=== PATIENT | male | born 1930 | race Asian ===

== ENCOUNTER 2022-02-26 23:25 | Inpatient (IN) | payer OTHER ==
[~2022-02-26] VITALS: Ht 188 cm; Wt 69.5 kg
[2022-02-26 23:30] VITALS: BP_SYST 86
[2022-02-26] MEDS ORDERED: VANCOMYCIN HCL 1,000 MG in NS 250 ML IV ONE (23:45)
[2022-02-26] MEDS ORDERED: NACL 0.9% 2,000 ML IV ONE (23:45)
[2022-02-26] MEDS ORDERED: MEROPENEM 1 GM IVPB PREMIX 50 ML IV ONE (23:45)
[2022-02-26 23:58] LABS: BILIRUBIN,URINE 1+ (NEGATIVE); BLOOD, URINE 3+ (NEGATIVE); CLARITY/URINE CLEAR (CLEAR); COLOR,URINE YELLOW (YELLOW); GLUCOSE,URINE NEGATIVE (NEGATIVE); KETONES,URINE TRACE (NEGATIVE); LEUKOCYTE ESTERASE ,URINE 1+ (NEGATIVE); NITRITE, URINE NEGATIVE (NEGATIVE); PROTEIN URINE 2+ (NEGATIVE)
[2022-02-27] VITALS (16 sets, daily range): BP systolic 86–133
[2022-02-27 00:26] LABS: BASOPHILS # (AUTO) 0.1 K/uL (0.0-0.2); BASOPHILS % (AUTO) 0.2 % (0.0-2.0); HEMATOCRIT 31.6 % (36-54); HEMOGLOBIN 10.3 g/dL (14.0-18.0); LYMPHOCYTES % (AUTO) 3.8 % (20.5-51.5); MEAN CORPUSCULAR HEMOGLOBIN 28 pg (27-31); MEAN CORPUSCULAR HGB CONC 33 % (32-36); MEAN CORPUSCULAR VOLUME 87 fL (79.0-98.0); MONOCYTES # (AUTO) 0.6 K/uL (0.0-1.0); MONOCYTES % (AUTO) 2.4 % (1.7-9.3); NEUTROPHILS # (AUTO) 23.9 K/uL (1.8-7.7); NEUTROPHILS % (AUTO) 93.6 % (40.0-70.0); PLATELET COUNT (AUTO) 438 K/uL (130-430); RED BLOOD CELL COUNT(AUTO) 3.63 MIL/uL (4.2-6.2); RED CELL DISTRIBUTION WIDTH 19.3 % (9.0-15.0); WHITE BLOOD COUNT (AUTO) 25.5 K/uL (4.8-10.8)
[2022-02-27 00:27] LABS: BACTERIA,URINE MANY /HPF (None Seen); RBC,URINE 20-50 /HPF (0-3)
[2022-02-27 00:34] LABS: ANION GAP 12 (5-15); CALCIUM 8.2 mg/dL (8.4-11.0); CHLORIDE 100 mmol/L (98-107); CREATININE 1.11 mg/dL (0.55-1.30); GLUCOSE 170 mg/dL (70-99); POTASSIUM 4.7 mmol/L (3.5-5.1); SODIUM SERUM 137 mmol/L (136-145); UREA NITROGEN, BLOOD 42 mg/dL (8-21)
[2022-02-27 00:40] LABS: ALANINE AMINOTRANSFERASE 11 U/L (12-78); ALBUMIN 1.9 g/dL (3.4-4.8); ASPARTATE AMINOTRANSFERASE 28 U/L (10-37); TOTAL BILIRUBIN 0.6 mg/dL (0.0-1.0)
[2022-02-27] MEDS ORDERED: MEROPENEM 500 MG VIAL IV ONE (00:44)
[2022-02-27] MEDS ORDERED: VANCOMYCIN HCL 1000 MG/VIAL IV ONE (01:46)
[2022-02-27] MEDS ORDERED: KETOROLAC TROMETHAMINE 30 MG VIAL ONE (02:35)
[2022-02-27] MEDS ORDERED: INSU100V11 SQ (02:39)
[2022-02-27] MEDS ORDERED: MEMA5TAB PO (02:39)
[2022-02-27] MEDS ORDERED: GLIP10TA21 PO (02:39)
[2022-02-27] MEDS ORDERED: OMEG-158 PO (02:39)
[2022-02-27] MEDS ORDERED: DONE10TA44 PO (02:39)
[2022-02-27] MEDS ORDERED: ACET325T53 PO (02:39)
[2022-02-27] MEDS ORDERED: CRAN450T9 PO (02:39)
[2022-02-27] MEDS ORDERED: METF-518 PO ×2 (02:39→02:57)
[2022-02-27] MEDS ORDERED: HYDR-4038 PO (02:39)
[2022-02-27] MEDS ORDERED: SIMV40TA2 PO (02:39)
[2022-02-27] MEDS ORDERED: ASCO500T20 PO (02:39)
[2022-02-27] MEDS ORDERED: MULT-1117 PO (02:39)
[2022-02-27] MEDS ORDERED: DOCU-144 PO (02:39)
[2022-02-27] MEDS ORDERED: KETOROLAC TROMETHAMINE 30 MG VIAL IVP ONE (02:45)
[2022-02-27] MEDS ORDERED: IPRA4AER INH (02:57)
[2022-02-27] MEDS ORDERED: ACET325T GT (02:57)
[2022-02-27] MEDS ORDERED: ASPI-1393 GT (02:57)
[2022-02-27] MEDS ORDERED: [UNRECOGNIZED DRUG - CODE] GT (02:57)
[2022-02-27] MEDS ORDERED: ARGI1POW13 GT (02:57)
[2022-02-27] MEDS ORDERED: FURO-150 GT (02:57)
[2022-02-27] MEDS ORDERED: LACT10SO6 GT (02:57)
[2022-02-27] MEDS ORDERED: ROBINUL GT (02:57)
[2022-02-27] MEDS ORDERED: COR3.125 GT (02:57)
[2022-02-27] MEDS ORDERED: FAMO20TA8 GT (02:57)
[2022-02-27] MEDS ORDERED: GLUC1VIA14 IM (02:57)
[2022-02-27] MEDS ORDERED: HYDR-3917 GT (02:57)
[2022-02-27] MEDS ORDERED: LISI10TA29 GT (02:57)
[2022-02-27] MEDS ORDERED: AMIN30LI2 GT (02:57)
[2022-02-27] MEDS ORDERED: MULT-1117 GT (02:57)
[2022-02-27] MEDS ORDERED: NOREPINEPHRINE BITARTRATE 4 MG in NS 246 ML IV PRN (05:45)
[2022-02-27 06:22] LABS: BASOPHILS % (AUTO) 0.1 % (0.0-2.0); HEMATOCRIT 27.1 % (36-54); HEMOGLOBIN 9.2 g/dL (14.0-18.0); LYMPHOCYTES # (AUTO) 1.6 K/uL (1.0-5.5); LYMPHOCYTES % (AUTO) 6.5 % (20.5-51.5); MEAN CORPUSCULAR HEMOGLOBIN 29 pg (27-31); MEAN CORPUSCULAR HGB CONC 34 % (32-36); MEAN CORPUSCULAR VOLUME 86 fL (79.0-98.0); MONOCYTES # (AUTO) 0.8 K/uL (0.0-1.0); MONOCYTES % (AUTO) 3.3 % (1.7-9.3); NEUTROPHILS # (AUTO) 22.4 K/uL (1.8-7.7); NEUTROPHILS % (AUTO) 90.1 % (40.0-70.0); PLATELET COUNT (AUTO) 346 K/uL (130-430); RED BLOOD CELL COUNT(AUTO) 3.17 MIL/uL (4.2-6.2); RED CELL DISTRIBUTION WIDTH 18.9 % (9.0-15.0); WHITE BLOOD COUNT (AUTO) 24.9 K/uL (4.8-10.8)
[2022-02-27 06:38] LABS: ANION GAP 8 (5-15); CALCIUM 7.2 mg/dL (8.4-11.0); CHLORIDE 105 mmol/L (98-107); CREATININE 0.86 mg/dL (0.55-1.30); GLUCOSE 154 mg/dL (70-99); POTASSIUM 4.6 mmol/L (3.5-5.1); SODIUM SERUM 139 mmol/L (136-145); UREA NITROGEN, BLOOD 46 mg/dL (8-21)
[2022-02-27 06:44] LABS: ALANINE AMINOTRANSFERASE 36 U/L (12-78); ALBUMIN 1.7 g/dL (3.4-4.8); ASPARTATE AMINOTRANSFERASE 44 U/L (10-37); TOTAL BILIRUBIN 0.4 mg/dL (0.0-1.0)
[2022-02-27] MEDS ORDERED: HYDROcodone/ACETAMIN 5-325 MG TAB (NORCO/ VICODIN) GT PRN (06:45)
[2022-02-27] MEDS ORDERED: MORPHINE 2 MG/ML INJ. SYRINGE IVP PRN ×2 (06:45→12:15)
[2022-02-27] MEDS ORDERED: ACETAMINOPHEN 325 MG TABLET PO PRN ×3 (06:45→12:15)
[2022-02-27] MEDS ORDERED: ONDANSETRON HCL 4 MG/2 ML VIAL IVP PRN ×2 (06:45→12:15)
[2022-02-27] MEDS ORDERED: NACL 0.9% 1,000 ML IV ONE (07:00)
[2022-02-27] MEDS ORDERED: HYDROCORTISONE SOD SUCC 100 MG/2 ML VIAL IVP ONE (07:00)
[2022-02-27] MEDS: NS 500 ML IV SCH ×3 (07:00→20:03)
[2022-02-27] MEDS: IPRATROPIUM BROM 0.5 MG/2.5 ML VIAL.NEB (ATROVENT) INH SCH ×4 (08:00→20:07)
[2022-02-27] MEDS: FUROSEMIDE 20 MG TABLET GT SCH (09:00)
[2022-02-27] MEDS ORDERED: ASPIRIN 81 MG TABLET(ECOTRIN) GT SCH (09:00)
[2022-02-27] MEDS: LISINOPRIL 10 MG TABLET (PRINIVIL) GT SCH (09:00)
[2022-02-27] MEDS: CARVEDILOL 3.125 MG TABLET (COREG) GT SCH ×2 (09:00→21:00)
[2022-02-27] MEDS: FAMOTIDINE 20 MG TABLET GT SCH ×2 (10:09→20:39)
[2022-02-27] MEDS: GLYCOPYRROLATE 1 MG TABLET GT SCH ×2 (10:10→20:39)
[2022-02-27] MEDS: MULTIVITAMINS TAB 1 TABLET GT SCH (10:10)
[2022-02-27] MEDS: ASPIRIN 81 MG TAB.CHEW GT SCH (10:10)
[2022-02-27] MEDS ORDERED: NOREPINEPHRINE 4 MG/4 ML VIAL IV ONE (10:48)
[2022-02-27 11:42] LABS: INR 1.3 (0.80-1.20); PROTHROMBIN TIME 12.9 SECS (9.5-12.5)
[2022-02-27] MEDS ORDERED: HYDROcodone/ACETAMIN 5-325 MG TAB (NORCO/ VICODIN) PO PRN (12:15)
[2022-02-27] MEDS: PIPERACILLIN/TAZO 3.375/DEX-IS 50 ML IV SCH ×2 (12:46→17:09)
[2022-02-27] MEDS ORDERED: VANCOMYCIN HCL 750 MG in NS 250 ML IV SCH (14:00)
[2022-02-27] MEDS: LACTOBACILLUS RHAMNOSUS GG 1 CAP CAPSULE PO SCH (20:38)
[2022-02-28] VITALS (23 sets, daily range): BP systolic 92–124
[2022-02-28] MEDS: PIPERACILLIN/TAZO 3.375/DEX-IS 50 ML IV SCH ×4 (00:21→17:18)
[2022-02-28] MEDS: IPRATROPIUM BROM 0.5 MG/2.5 ML VIAL.NEB (ATROVENT) INH SCH ×6 (02:40→20:10)
[2022-02-28] MEDS: NS 500 ML IV SCH ×3 (03:29→17:18)
[2022-02-28 06:58] LABS: HEMATOCRIT 27.4 % (36-54); HEMOGLOBIN 9.1 g/dL (14.0-18.0); MEAN CORPUSCULAR HEMOGLOBIN 29 pg (27-31); MEAN CORPUSCULAR HGB CONC 33 % (32-36); MEAN CORPUSCULAR VOLUME 86 fL (79.0-98.0); PLATELET COUNT (AUTO) 296 K/uL (130-430); RED BLOOD CELL COUNT(AUTO) 3.17 MIL/uL (4.2-6.2); RED CELL DISTRIBUTION WIDTH 19.2 % (9.0-15.0); WHITE BLOOD COUNT (AUTO) 22.3 K/uL (4.8-10.8)
[2022-02-28 07:12] LABS: ANION GAP 5 (5-15); CALCIUM 7.4 mg/dL (8.4-11.0); CHLORIDE 109 mmol/L (98-107); CREATININE 0.62 mg/dL (0.55-1.30); GLUCOSE 108 mg/dL (70-99); PHOSPHORUS 2.7 mg/dL (2.7-4.5); POTASSIUM 3.4 mmol/L (3.5-5.1); SODIUM SERUM 142 mmol/L (136-145); UREA NITROGEN, BLOOD 39 mg/dL (8-21)
[2022-02-28] MEDS: LISINOPRIL 10 MG TABLET (PRINIVIL) GT SCH (09:00)
[2022-02-28] MEDS: CARVEDILOL 3.125 MG TABLET (COREG) GT SCH ×2 (09:00→21:58)
[2022-02-28] MEDS ORDERED: POTASSIUM CHLORIDE 20 MEQ/PKT PACKET GT ONE (09:15)
[2022-02-28] MEDS: LACTOBACILLUS RHAMNOSUS GG 1 CAP CAPSULE PO SCH ×2 (09:25→21:28)
[2022-02-28] MEDS: MULTIVITAMINS TAB 1 TABLET GT SCH (09:25)
[2022-02-28] MEDS: ASPIRIN 81 MG TAB.CHEW GT SCH (09:25)
[2022-02-28] MEDS: GLYCOPYRROLATE 1 MG TABLET GT SCH ×2 (09:26→21:28)
[2022-02-28] MEDS: FAMOTIDINE 20 MG TABLET GT SCH ×2 (09:27→21:28)
[2022-02-28] MEDS: FUROSEMIDE 20 MG TABLET GT SCH (09:27)
[2022-02-28 15:03] LABS: BAND % (MANUAL) 17 % (0-6); BASOPHILS % (MANUAL) 0 % (0-2); EOSINOPHILS % (MANUAL) 0 % (0-7); LYMPHOCYTES % (MANUAL) 6 % (20-46); MONOCYTES % (MANUAL) 1 % (0-11)
[2022-02-28] MEDS: ALBUTEROL SULFATE 0.083% 2.5 MG/3 ML VIAL.NEB INH PRN (17:38)
[2022-03-01] VITALS (23 sets, daily range): BP systolic 98–129
[2022-03-01] MEDS: PIPERACILLIN/TAZO 3.375/DEX-IS 50 ML IV SCH ×5 (00:05→23:47)
[2022-03-01] MEDS: IPRATROPIUM BROM 0.5 MG/2.5 ML VIAL.NEB (ATROVENT) INH SCH ×5 (03:13→20:11)
[2022-03-01] MEDS: NS 500 ML IV SCH ×4 (07:48→20:57)
[2022-03-01] MEDS: ALBUTEROL SULFATE 0.083% 2.5 MG/3 ML VIAL.NEB INH PRN ×2 (09:37→20:12)
[2022-03-01] MEDS: GLYCOPYRROLATE 1 MG TABLET GT SCH ×2 (10:07→20:03)
[2022-03-01] MEDS: MULTIVITAMINS TAB 1 TABLET GT SCH (10:07)
[2022-03-01] MEDS: ASPIRIN 81 MG TAB.CHEW GT SCH (10:07)
[2022-03-01] MEDS: FAMOTIDINE 20 MG TABLET GT SCH ×2 (10:07→20:04)
[2022-03-01] MEDS: LACTOBACILLUS RHAMNOSUS GG 1 CAP CAPSULE PO SCH ×2 (10:07→20:03)
[2022-03-01] MEDS: LISINOPRIL 10 MG TABLET (PRINIVIL) GT SCH (10:09)
[2022-03-01] MEDS: CARVEDILOL 3.125 MG TABLET (COREG) GT SCH ×2 (10:09→20:04)
[2022-03-01] MEDS: FUROSEMIDE 20 MG TABLET GT SCH (10:10)
[2022-03-01] MEDS: BALSAM PERU/CASTOR OIL 56.7 GM OINT...G. TP SCH (10:11)
[2022-03-01] MEDS: HEPARIN SODIUM,PORCINE 5,000 UNITS/ML VIAL SUBCUT SCH (20:06)
[2022-03-02] MEDS: IPRATROPIUM BROM 0.5 MG/2.5 ML VIAL.NEB (ATROVENT) INH SCH ×7 (00:31→23:16)
[2022-03-02 00:45] VITALS: BP_SYST 121
[2022-03-02] MEDS: NS 500 ML IV SCH ×3 (06:03→22:48)
[2022-03-02] MEDS: PIPERACILLIN/TAZO 3.375/DEX-IS 50 ML IV SCH ×3 (06:03→18:17)
[2022-03-02 06:38] LABS: BASOPHILS % (AUTO) 0.1 % (0.0-2.0); EOSINOPHILS # (AUTO) 0.1 K/uL (0.0-0.4); EOSINOPHILS % (AUTO) 0.4 % (0.0-4.0); HEMATOCRIT 24.5 % (36-54); HEMOGLOBIN 8.2 g/dL (14.0-18.0); LYMPHOCYTES # (AUTO) 1.1 K/uL (1.0-5.5); LYMPHOCYTES % (AUTO) 9.3 % (20.5-51.5); MEAN CORPUSCULAR HEMOGLOBIN 29 pg (27-31); MEAN CORPUSCULAR HGB CONC 33 % (32-36); MEAN CORPUSCULAR VOLUME 87 fL (79.0-98.0); MONOCYTES # (AUTO) 0.5 K/uL (0.0-1.0); MONOCYTES % (AUTO) 4.4 % (1.7-9.3); NEUTROPHILS # (AUTO) 10.6 K/uL (1.8-7.7); NEUTROPHILS % (AUTO) 85.8 % (40.0-70.0); PLATELET COUNT (AUTO) 250 K/uL (130-430); RED BLOOD CELL COUNT(AUTO) 2.83 MIL/uL (4.2-6.2); RED CELL DISTRIBUTION WIDTH 19.3 % (9.0-15.0); WHITE BLOOD COUNT (AUTO) 12.3 K/uL (4.8-10.8)
[2022-03-02 07:16] LABS: ANION GAP 9 (5-15); CHLORIDE 111 mmol/L (98-107); CREATININE 0.63 mg/dL (0.55-1.30); GLUCOSE 145 mg/dL (70-99); PHOSPHORUS 2.2 mg/dL (2.7-4.5); SODIUM SERUM 147 mmol/L (136-145); UREA NITROGEN, BLOOD 36 mg/dL (8-21)
[2022-03-02] MEDS: ALBUTEROL SULFATE 0.083% 2.5 MG/3 ML VIAL.NEB INH PRN (07:37)
[2022-03-02 08:00] VITALS: BP_SYST 125
[2022-03-02 08:30] LABS: CALCIUM 6.9 mg/dL (8.4-11.0); POTASSIUM 2.7 mmol/L (3.5-5.1)
[2022-03-02] MEDS: ASPIRIN 81 MG TAB.CHEW GT SCH (08:42)
[2022-03-02] MEDS: LACTOBACILLUS RHAMNOSUS GG 1 CAP CAPSULE PO SCH ×2 (08:42→22:46)
[2022-03-02] MEDS: MULTIVITAMINS TAB 1 TABLET GT SCH (08:42)
[2022-03-02] MEDS: FUROSEMIDE 20 MG TABLET GT SCH (08:42)
[2022-03-02] MEDS: FAMOTIDINE 20 MG TABLET GT SCH ×2 (08:43→22:47)
[2022-03-02] MEDS: CARVEDILOL 3.125 MG TABLET (COREG) GT SCH ×2 (08:43→22:46)
[2022-03-02] MEDS: LISINOPRIL 10 MG TABLET (PRINIVIL) GT SCH (08:43)
[2022-03-02] MEDS: GLYCOPYRROLATE 1 MG TABLET GT SCH ×2 (08:43→22:47)
[2022-03-02] MEDS: HEPARIN SODIUM,PORCINE 5,000 UNITS/ML VIAL SUBCUT SCH ×2 (08:44→22:57)
[2022-03-02] MEDS: BALSAM PERU/CASTOR OIL 56.7 GM OINT...G. TP SCH (08:45)
[2022-03-02 09:40] VITALS: BP_SYST 125
[2022-03-02] MEDS ORDERED: POTASSIUM CHLORIDE 20 MEQ/PKT PACKET PO ONE (09:45)
[2022-03-02 12:00] VITALS: BP_SYST 123
[2022-03-02 16:00] VITALS: BP_SYST 124
[2022-03-02 21:00] VITALS: BP_SYST 135
[2022-03-03 01:02] VITALS: BP_SYST 126
[2022-03-03] MEDS: PIPERACILLIN/TAZO 3.375/DEX-IS 50 ML IV SCH ×2 (03:08→06:40)
[2022-03-03] MEDS: IPRATROPIUM BROM 0.5 MG/2.5 ML VIAL.NEB (ATROVENT) INH SCH ×5 (03:23→20:29)
[2022-03-03 06:39] LABS: BASOPHILS % (AUTO) 0.2 % (0.0-2.0); EOSINOPHILS % (AUTO) 0.3 % (0.0-4.0); HEMATOCRIT 25.8 % (36-54); HEMOGLOBIN 8.5 g/dL (14.0-18.0); LYMPHOCYTES # (AUTO) 1.2 K/uL (1.0-5.5); LYMPHOCYTES % (AUTO) 9.6 % (20.5-51.5); MEAN CORPUSCULAR HEMOGLOBIN 28 pg (27-31); MEAN CORPUSCULAR HGB CONC 33 % (32-36); MEAN CORPUSCULAR VOLUME 85 fL (79.0-98.0); MONOCYTES # (AUTO) 0.6 K/uL (0.0-1.0); NEUTROPHILS # (AUTO) 10.3 K/uL (1.8-7.7); NEUTROPHILS % (AUTO) 84.9 % (40.0-70.0); PLATELET COUNT (AUTO) 245 K/uL (130-430); RED BLOOD CELL COUNT(AUTO) 3.03 MIL/uL (4.2-6.2); RED CELL DISTRIBUTION WIDTH 19.2 % (9.0-15.0); WHITE BLOOD COUNT (AUTO) 12.1 K/uL (4.8-10.8)
[2022-03-03] MEDS: NS 500 ML IV SCH ×4 (06:40→22:45)
[2022-03-03 07:42] VITALS: BP_SYST 123
[2022-03-03 07:42] LABS: ANION GAP 5 (5-15); CALCIUM 7.2 mg/dL (8.4-11.0); CHLORIDE 111 mmol/L (98-107); CREATININE 0.53 mg/dL (0.55-1.30); GLUCOSE 142 mg/dL (70-99); PHOSPHORUS 2.4 mg/dL (2.7-4.5); POTASSIUM 3.3 mmol/L (3.5-5.1); SODIUM SERUM 148 mmol/L (136-145); UREA NITROGEN, BLOOD 25 mg/dL (8-21)
[2022-03-03] MEDS: FUROSEMIDE 20 MG TABLET GT SCH (08:29)
[2022-03-03] MEDS: FAMOTIDINE 20 MG TABLET GT SCH ×2 (08:29→22:43)
[2022-03-03] MEDS: CARVEDILOL 3.125 MG TABLET (COREG) GT SCH ×2 (08:30→22:44)
[2022-03-03] MEDS: LACTOBACILLUS RHAMNOSUS GG 1 CAP CAPSULE PO SCH ×2 (08:30→22:43)
[2022-03-03] MEDS: MULTIVITAMINS TAB 1 TABLET GT SCH (08:30)
[2022-03-03] MEDS: ASPIRIN 81 MG TAB.CHEW GT SCH (08:31)
[2022-03-03] MEDS: GLYCOPYRROLATE 1 MG TABLET GT SCH ×2 (08:31→22:43)
[2022-03-03] MEDS: LISINOPRIL 10 MG TABLET (PRINIVIL) GT SCH (08:31)
[2022-03-03] MEDS: HEPARIN SODIUM,PORCINE 5,000 UNITS/ML VIAL SUBCUT SCH ×2 (08:40→22:47)
[2022-03-03] MEDS: POTASSIUM CHLORIDE 20 MEQ/PKT PACKET PO PRN (09:20)
[2022-03-03] MEDS: BALSAM PERU/CASTOR OIL 56.7 GM OINT...G. TP SCH ×2 (09:20→22:45)
[2022-03-03 12:00] VITALS: BP_SYST 125
[2022-03-03] MEDS: CEFTAZIDIME/AVIBACTAM 2.5 GM in NS 100 ML IV SCH ×2 (14:45→22:43)
[2022-03-03 16:00] VITALS: BP_SYST 129
[2022-03-03 21:00] VITALS: BP_SYST 135
[2022-03-03] MEDS ORDERED: COLLAGENASE 30 GM OINT Non-Formulary 30 GM OINT..GM. TP SCH (21:00)
[2022-03-04 00:41] VITALS: BP_SYST 130
[2022-03-04] MEDS: IPRATROPIUM BROM 0.5 MG/2.5 ML VIAL.NEB (ATROVENT) INH SCH ×4 (00:42→21:36)
[2022-03-04] MEDS: CEFTAZIDIME/AVIBACTAM 2.5 GM in NS 100 ML IV SCH ×2 (05:43→22:19)
[2022-03-04] MEDS: NS 500 ML IV SCH ×3 (07:18→21:36)
[2022-03-04 07:54] LABS: PHOSPHORUS 2.8 mg/dL (2.7-4.5)
[2022-03-04 08:00] VITALS: BP_SYST 132
[2022-03-04] MEDS: HEPARIN SODIUM,PORCINE 5,000 UNITS/ML VIAL SUBCUT SCH ×2 (09:00→21:00)
[2022-03-04] MEDS: FUROSEMIDE 20 MG TABLET GT SCH (09:31)
[2022-03-04] MEDS: LISINOPRIL 10 MG TABLET (PRINIVIL) GT SCH (09:31)
[2022-03-04] MEDS: MULTIVITAMINS TAB 1 TABLET GT SCH (09:31)
[2022-03-04] MEDS: ASPIRIN 81 MG TAB.CHEW GT SCH (09:31)
[2022-03-04] MEDS: GLYCOPYRROLATE 1 MG TABLET GT SCH ×2 (09:31→22:20)
[2022-03-04] MEDS: LACTOBACILLUS RHAMNOSUS GG 1 CAP CAPSULE PO SCH ×2 (09:32→22:20)
[2022-03-04] MEDS: FAMOTIDINE 20 MG TABLET GT SCH ×2 (09:32→22:20)
[2022-03-04] MEDS: CARVEDILOL 3.125 MG TABLET (COREG) GT SCH ×2 (09:32→22:20)
[2022-03-04] MEDS: BALSAM PERU/CASTOR OIL 56.7 GM OINT...G. TP SCH ×2 (09:32→22:24)
[2022-03-04 11:41] VITALS: BP_SYST 127
[2022-03-04 16:26] VITALS: BP_SYST 129
[2022-03-04 19:00] VITALS: BP_SYST 113
[2022-03-04 20:00] VITALS: BP_SYST 113
[2022-03-05] VITALS: BP_SYST 110
[2022-03-05] MEDS: IPRATROPIUM BROM 0.5 MG/2.5 ML VIAL.NEB (ATROVENT) INH SCH ×7 (00:03→23:21)
[2022-03-05] MEDS: ALBUTEROL SULFATE 0.083% 2.5 MG/3 ML VIAL.NEB INH PRN (03:33)
[2022-03-05] MEDS: CEFTAZIDIME/AVIBACTAM 2.5 GM in NS 100 ML IV SCH ×3 (05:17→22:12)
[2022-03-05] MEDS: NS 500 ML IV SCH ×3 (05:20→22:02)
[2022-03-05 06:36] LABS: PHOSPHORUS 2.9 mg/dL (2.7-4.5)
[2022-03-05 08:05] VITALS: BP_SYST 108
[2022-03-05] MEDS: ASPIRIN 81 MG TAB.CHEW GT SCH (10:23)
[2022-03-05] MEDS: CARVEDILOL 3.125 MG TABLET (COREG) GT SCH ×2 (10:24→22:12)
[2022-03-05] MEDS: FUROSEMIDE 20 MG TABLET GT SCH (10:24)
[2022-03-05] MEDS: FAMOTIDINE 20 MG TABLET GT SCH ×2 (10:25→22:03)
[2022-03-05] MEDS: LISINOPRIL 10 MG TABLET (PRINIVIL) GT SCH (10:25)
[2022-03-05] MEDS: BALSAM PERU/CASTOR OIL 56.7 GM OINT...G. TP SCH ×2 (10:25→22:13)
[2022-03-05] MEDS: LACTOBACILLUS RHAMNOSUS GG 1 CAP CAPSULE PO SCH ×2 (10:25→22:03)
[2022-03-05] MEDS: GLYCOPYRROLATE 1 MG TABLET GT SCH ×2 (10:25→22:03)
[2022-03-05] MEDS: MULTIVITAMINS TAB 1 TABLET GT SCH (10:25)
[2022-03-05] MEDS: HEPARIN SODIUM,PORCINE 5,000 UNITS/ML VIAL SUBCUT SCH ×2 (10:26→22:08)
[2022-03-05 11:40] VITALS: BP_SYST 140
[2022-03-05 12:00] VITALS: BP_SYST 111
[2022-03-05 13:34] LABS: BASOPHILS # (AUTO) 0.1 K/uL (0.0-0.2); BASOPHILS % (AUTO) 0.7 % (0.0-2.0); EOSINOPHILS # (AUTO) 0.1 K/uL (0.0-0.4); EOSINOPHILS % (AUTO) 0.9 % (0.0-4.0); HEMATOCRIT 28.7 % (36-54); HEMOGLOBIN 9.3 g/dL (14.0-18.0); LYMPHOCYTES # (AUTO) 1.6 K/uL (1.0-5.5); LYMPHOCYTES % (AUTO) 11.5 % (20.5-51.5); MEAN CORPUSCULAR HEMOGLOBIN 28 pg (27-31); MEAN CORPUSCULAR HGB CONC 32 % (32-36); MEAN CORPUSCULAR VOLUME 87 fL (79.0-98.0); MONOCYTES # (AUTO) 0.6 K/uL (0.0-1.0); NEUTROPHILS # (AUTO) 11.6 K/uL (1.8-7.7); NEUTROPHILS % (AUTO) 82.9 % (40.0-70.0); PLATELET COUNT (AUTO) 234 K/uL (130-430); RED BLOOD CELL COUNT(AUTO) 3.31 MIL/uL (4.2-6.2); RED CELL DISTRIBUTION WIDTH 19.7 % (9.0-15.0); WHITE BLOOD COUNT (AUTO) 13.9 K/uL (4.8-10.8)
[2022-03-05 13:50] LABS: ANION GAP 2 (5-15); CALCIUM 8.1 mg/dL (8.4-11.0); CHLORIDE 112 mmol/L (98-107); CREATININE 0.61 mg/dL (0.55-1.30); GLUCOSE 136 mg/dL (70-99); SODIUM SERUM 149 mmol/L (136-145); UREA NITROGEN, BLOOD 26 mg/dL (8-21)
[2022-03-05] MEDS ORDERED: POTASSIUM CHLORIDE 30 MEQ in NS 250 ML IV ONE (15:15)
[2022-03-05 16:13] VITALS: BP_SYST 107
[2022-03-05] MEDS: POTASSIUM CHLORIDE 20 MEQ/PKT PACKET PO PRN (22:03)
[2022-03-05 22:06] VITALS: BP_SYST 110
[2022-03-06 01:33] VITALS: BP_SYST 108
[2022-03-06] MEDS: NS 500 ML IV SCH ×3 (02:12→16:30)
[2022-03-06] MEDS: IPRATROPIUM BROM 0.5 MG/2.5 ML VIAL.NEB (ATROVENT) INH SCH ×6 (04:56→23:08)
[2022-03-06] MEDS: CEFTAZIDIME/AVIBACTAM 2.5 GM in NS 100 ML IV SCH ×3 (06:11→21:43)
[2022-03-06 06:43] LABS: ANION GAP 6 (5-15); CALCIUM 8.4 mg/dL (8.4-11.0); CHLORIDE 114 mmol/L (98-107); CREATININE 0.63 mg/dL (0.55-1.30); GLUCOSE 95 mg/dL (70-99); PHOSPHORUS 2.8 mg/dL (2.7-4.5); POTASSIUM 4.2 mmol/L (3.5-5.1); SODIUM SERUM 149 mmol/L (136-145); UREA NITROGEN, BLOOD 25 mg/dL (8-21)
[2022-03-06 08:00] VITALS: BP_SYST 109
[2022-03-06 08:50] LABS: BASOPHILS % (AUTO) 0.4 % (0.0-2.0); EOSINOPHILS # (AUTO) 0.1 K/uL (0.0-0.4); HEMATOCRIT 29.1 % (36-54); HEMOGLOBIN 9.4 g/dL (14.0-18.0); LYMPHOCYTES # (AUTO) 2.2 K/uL (1.0-5.5); LYMPHOCYTES % (AUTO) 17.6 % (20.5-51.5); MEAN CORPUSCULAR HEMOGLOBIN 28 pg (27-31); MEAN CORPUSCULAR HGB CONC 32 % (32-36); MEAN CORPUSCULAR VOLUME 88 fL (79.0-98.0); MONOCYTES # (AUTO) 0.6 K/uL (0.0-1.0); MONOCYTES % (AUTO) 4.8 % (1.7-9.3); NEUTROPHILS # (AUTO) 9.4 K/uL (1.8-7.7); NEUTROPHILS % (AUTO) 76.2 % (40.0-70.0); PLATELET COUNT (AUTO) 236 K/uL (130-430); RED CELL DISTRIBUTION WIDTH 20.8 % (9.0-15.0); WHITE BLOOD COUNT (AUTO) 12.3 K/uL (4.8-10.8)
[2022-03-06] MEDS: CARVEDILOL 3.125 MG TABLET (COREG) GT SCH ×2 (08:59→21:52)
[2022-03-06] MEDS: LACTOBACILLUS RHAMNOSUS GG 1 CAP CAPSULE PO SCH ×2 (08:59→21:41)
[2022-03-06] MEDS: FUROSEMIDE 20 MG TABLET GT SCH (08:59)
[2022-03-06] MEDS: BALSAM PERU/CASTOR OIL 56.7 GM OINT...G. TP SCH ×2 (08:59→21:54)
[2022-03-06] MEDS: HEPARIN SODIUM,PORCINE 5,000 UNITS/ML VIAL SUBCUT SCH ×2 (09:00→21:00)
[2022-03-06] MEDS: LISINOPRIL 10 MG TABLET (PRINIVIL) GT SCH (09:00)
[2022-03-06] MEDS: GLYCOPYRROLATE 1 MG TABLET GT SCH ×2 (09:00→21:41)
[2022-03-06] MEDS: MULTIVITAMINS TAB 1 TABLET GT SCH (09:00)
[2022-03-06] MEDS: FAMOTIDINE 20 MG TABLET GT SCH ×2 (09:00→21:41)
[2022-03-06] MEDS: ASPIRIN 81 MG TAB.CHEW GT SCH (09:00)
[2022-03-06 11:41] VITALS: BP_SYST 119
[2022-03-06 16:00] VITALS: BP_SYST 115
[2022-03-06] MEDS ORDERED: MEPERIDINE HCL/PF 25 MG/ML DISP.SYRIN IVP PRN (16:00)
[2022-03-06] MEDS ORDERED: NALOXONE HCL 0.4 MG/ML AMP (NARCAN) IVP PRN ×2 (16:00)
[2022-03-06] MEDS ORDERED: ePHEDrine sulfate 50 MG/ML VIAL IVP PRN (16:00)
[2022-03-06] MEDS ORDERED: HYDROmorphone 1 MG/ML INJ. CARTRIDGE IVP PRN (16:00)
[2022-03-06] MEDS ORDERED: ONDANSETRON HCL 4 MG/2 ML VIAL IVP PRN (16:00)
[2022-03-06] MEDS ORDERED: LR 1,000 ML IV SCH (16:00)
[2022-03-06] MEDS ORDERED: NS 1000 ML IV.SOLN IV ONE (16:07)
[2022-03-06] MEDS ORDERED: ePHEDrine sulfate 50 MG/ML VIAL ONE (16:07)
[2022-03-06] MEDS ORDERED: DEXAMETHASONE SOD PHOSPHATE 4 MG/ML VIAL ONE (16:07)
[2022-03-06] MEDS ORDERED: fentaNYL CITRATE/PF 100 MCG/2 ML AMP ONE (16:07)
[2022-03-06] MEDS ORDERED: PHENYLEPHRINE HCL 10 MG/ML VIAL (NEOSYNEPHRINE) ONE (16:07)
[2022-03-06] MEDS ORDERED: METOCLOPRAMIDE HCL 10 MG/2 ML VIAL ONE (16:07)
[2022-03-06] MEDS ORDERED: SEVOFLURANE 15 MIN GAS INH ONE (16:07)
[2022-03-06] MEDS ORDERED: ONDANSETRON HCL 4 MG/2 ML VIAL ONE (16:07)
[2022-03-06] MEDS ORDERED: PROPOFOL 200MG/ 20ML VIAL (DIPRIVAN) IV ONE (16:07)
[2022-03-06] MEDS ORDERED: BUPIVACAINE /EPINEPHRINE/PF 0.25% 30 ML VIAL INJ ONE (16:07)
[2022-03-06] MEDS ORDERED: NS IRRIG SOLN 1000 ML IR ONE (16:07)
[2022-03-06 21:18] VITALS: BP_SYST 111
[2022-03-07 00:24] VITALS: BP_SYST 110
[2022-03-07] MEDS: IPRATROPIUM BROM 0.5 MG/2.5 ML VIAL.NEB (ATROVENT) INH SCH ×5 (03:02→20:11)
[2022-03-07] MEDS: CEFTAZIDIME/AVIBACTAM 2.5 GM in NS 100 ML IV SCH ×3 (05:47→22:17)
[2022-03-07 06:53] LABS: PHOSPHORUS 2.7 mg/dL (2.7-4.5)
[2022-03-07 08:00] VITALS: BP_SYST 111
[2022-03-07] MEDS: MULTIVITAMINS TAB 1 TABLET GT SCH (08:13)
[2022-03-07] MEDS: LACTOBACILLUS RHAMNOSUS GG 1 CAP CAPSULE PO SCH ×2 (08:13→22:16)
[2022-03-07] MEDS: LISINOPRIL 10 MG TABLET (PRINIVIL) GT SCH (08:14)
[2022-03-07] MEDS: CARVEDILOL 3.125 MG TABLET (COREG) GT SCH ×2 (08:14→22:21)
[2022-03-07] MEDS: FUROSEMIDE 20 MG TABLET GT SCH (08:14)
[2022-03-07] MEDS: ASPIRIN 81 MG TAB.CHEW GT SCH (08:14)
[2022-03-07] MEDS: GLYCOPYRROLATE 1 MG TABLET GT SCH ×2 (08:14→22:16)
[2022-03-07] MEDS: FAMOTIDINE 20 MG TABLET GT SCH ×2 (08:14→22:16)
[2022-03-07] MEDS: BALSAM PERU/CASTOR OIL 56.7 GM OINT...G. TP SCH ×2 (08:15→22:18)
[2022-03-07] MEDS: HEPARIN SODIUM,PORCINE 5,000 UNITS/ML VIAL SUBCUT SCH ×2 (09:00→22:26)
[2022-03-07 12:26] VITALS: BP_SYST 139
[2022-03-07 16:23] VITALS: BP_SYST 111
[2022-03-07 20:07] VITALS: BP_SYST 109
[2022-03-08] VITALS: BP_SYST 111
[2022-03-08] MEDS: CEFTAZIDIME/AVIBACTAM 2.5 GM in NS 100 ML IV SCH ×3 (05:02→22:01)
[2022-03-08 07:06] LABS: PHOSPHORUS 2.5 mg/dL (2.7-4.5)
[2022-03-08] MEDS ORDERED: MORPHINE 2 MG/ML INJ. SYRINGE IVP PRN (07:15)
[2022-03-08] MEDS: IPRATROPIUM BROM 0.5 MG/2.5 ML VIAL.NEB (ATROVENT) INH SCH ×5 (07:29→22:39)
[2022-03-08 08:00] VITALS: BP_SYST 109
[2022-03-08] MEDS: GLYCOPYRROLATE 1 MG TABLET GT SCH ×2 (08:28→21:51)
[2022-03-08] MEDS: FAMOTIDINE 20 MG TABLET GT SCH ×2 (08:28→21:51)
[2022-03-08] MEDS: ASPIRIN 81 MG TAB.CHEW GT SCH (08:28)
[2022-03-08] MEDS: MULTIVITAMINS TAB 1 TABLET GT SCH (08:28)
[2022-03-08] MEDS: LISINOPRIL 10 MG TABLET (PRINIVIL) GT SCH (08:29)
[2022-03-08] MEDS: CARVEDILOL 3.125 MG TABLET (COREG) GT SCH ×2 (08:29→21:52)
[2022-03-08] MEDS: LACTOBACILLUS RHAMNOSUS GG 1 CAP CAPSULE PO SCH ×2 (08:29→21:51)
[2022-03-08] MEDS: FUROSEMIDE 20 MG TABLET GT SCH (08:30)
[2022-03-08] MEDS: HEPARIN SODIUM,PORCINE 5,000 UNITS/ML VIAL SUBCUT SCH ×2 (08:30→21:59)
[2022-03-08] MEDS: BALSAM PERU/CASTOR OIL 56.7 GM OINT...G. TP SCH ×2 (08:31→22:00)
[2022-03-08 09:09] VITALS: BP_SYST 109
[2022-03-08 12:53] VITALS: BP_SYST 113
[2022-03-08 16:00] VITALS: BP_SYST 115
[2022-03-08 20:00] VITALS: BP_SYST 103
[2022-03-09 00:25] VITALS: BP_SYST 109
[2022-03-09] MEDS: IPRATROPIUM BROM 0.5 MG/2.5 ML VIAL.NEB (ATROVENT) INH SCH ×4 (03:34→20:28)
[2022-03-09] MEDS: CEFTAZIDIME/AVIBACTAM 2.5 GM in NS 100 ML IV SCH ×2 (06:14→14:54)
[2022-03-09 08:00] VITALS: BP_SYST 109
[2022-03-09] MEDS: LISINOPRIL 10 MG TABLET (PRINIVIL) GT SCH ×2 (09:00→10:26)
[2022-03-09] MEDS: CARVEDILOL 3.125 MG TABLET (COREG) GT SCH ×3 (09:00→21:00)
[2022-03-09] MEDS: ASPIRIN 81 MG TAB.CHEW GT SCH (10:22)
[2022-03-09] MEDS: MULTIVITAMINS TAB 1 TABLET GT SCH (10:22)
[2022-03-09] MEDS: HEPARIN SODIUM,PORCINE 5,000 UNITS/ML VIAL SUBCUT SCH (10:22)
[2022-03-09] MEDS: LACTOBACILLUS RHAMNOSUS GG 1 CAP CAPSULE PO SCH (10:26)
[2022-03-09] MEDS: GLYCOPYRROLATE 1 MG TABLET GT SCH ×2 (10:26→23:59)
[2022-03-09] MEDS: FUROSEMIDE 20 MG TABLET GT SCH (10:27)
[2022-03-09] MEDS: FAMOTIDINE 20 MG TABLET GT SCH ×2 (10:27→23:59)
[2022-03-09] MEDS: BALSAM PERU/CASTOR OIL 56.7 GM OINT...G. TP SCH (10:28)
[2022-03-09 12:02] VITALS: BP_SYST 118
[2022-03-09 16:29] VITALS: BP_SYST 122
[2022-03-09] MEDS: HYDROcodone/ACETAMIN 5-325 MG TAB (NORCO/ VICODIN) GT PRN (23:58)
[2022-03-10] MEDS: CEFTAZIDIME/AVIBACTAM 2.5 GM in NS 100 ML IV SCH ×4 (00:02→21:04)
[2022-03-10] MEDS: HEPARIN SODIUM,PORCINE 5,000 UNITS/ML VIAL SUBCUT SCH ×3 (00:07→20:23)
[2022-03-10] MEDS: IPRATROPIUM BROM 0.5 MG/2.5 ML VIAL.NEB (ATROVENT) INH SCH ×7 (00:10→23:00)
[2022-03-10 00:59] VITALS: BP_SYST 117
[2022-03-10 08:00] VITALS: BP_SYST 112
[2022-03-10 08:17] LABS: BASOPHILS # (AUTO) 0.1 K/uL (0.0-0.2); BASOPHILS % (AUTO) 0.5 % (0.0-2.0); EOSINOPHILS # (AUTO) 0.2 K/uL (0.0-0.4); EOSINOPHILS % (AUTO) 1.3 % (0.0-4.0); HEMATOCRIT 29.5 % (36-54); HEMOGLOBIN 9.4 g/dL (14.0-18.0); LYMPHOCYTES # (AUTO) 1.8 K/uL (1.0-5.5); LYMPHOCYTES % (AUTO) 10.8 % (20.5-51.5); MEAN CORPUSCULAR HEMOGLOBIN 29 pg (27-31); MEAN CORPUSCULAR HGB CONC 32 % (32-36); MEAN CORPUSCULAR VOLUME 90 fL (79.0-98.0); MONOCYTES # (AUTO) 0.5 K/uL (0.0-1.0); MONOCYTES % (AUTO) 3.1 % (1.7-9.3); NEUTROPHILS # (AUTO) 14.2 K/uL (1.8-7.7); NEUTROPHILS % (AUTO) 84.3 % (40.0-70.0); PLATELET COUNT (AUTO) 244 K/uL (130-430); RED BLOOD CELL COUNT(AUTO) 3.28 MIL/uL (4.2-6.2); RED CELL DISTRIBUTION WIDTH 21.5 % (9.0-15.0); WHITE BLOOD COUNT (AUTO) 16.8 K/uL (4.8-10.8)
[2022-03-10] MEDS: LISINOPRIL 10 MG TABLET (PRINIVIL) GT SCH (09:00)
[2022-03-10] MEDS: FUROSEMIDE 20 MG TABLET GT SCH (09:00)
[2022-03-10] MEDS: ASPIRIN 81 MG TAB.CHEW GT SCH (09:06)
[2022-03-10] MEDS: LACTOBACILLUS RHAMNOSUS GG 1 CAP CAPSULE PO SCH ×3 (09:07→20:21)
[2022-03-10] MEDS: GLYCOPYRROLATE 1 MG TABLET GT SCH ×2 (09:07→20:21)
[2022-03-10] MEDS: MULTIVITAMINS TAB 1 TABLET GT SCH (09:07)
[2022-03-10] MEDS: FAMOTIDINE 20 MG TABLET GT SCH ×2 (09:07→20:21)
[2022-03-10] MEDS: CARVEDILOL 3.125 MG TABLET (COREG) GT SCH ×2 (09:08→20:20)
[2022-03-10] MEDS: BALSAM PERU/CASTOR OIL 56.7 GM OINT...G. TP SCH ×3 (09:09→21:04)
[2022-03-10 09:21] LABS: ANION GAP 2 (5-15); CALCIUM 8.6 mg/dL (8.4-11.0); CHLORIDE 116 mmol/L (98-107); CREATININE 0.73 mg/dL (0.55-1.30); GLUCOSE 136 mg/dL (70-99); SODIUM SERUM 155 mmol/L (136-145); UREA NITROGEN, BLOOD 36 mg/dL (8-21)
[2022-03-10 12:00] VITALS: BP_SYST 103
[2022-03-10 16:30] VITALS: BP_SYST 124
[2022-03-10 20:00] VITALS: BP_SYST 110
[2022-03-10] MEDS: HYDROcodone/ACETAMIN 5-325 MG TAB (NORCO/ VICODIN) GT PRN (20:20)
[2022-03-11] VITALS (7 sets, daily range): BP systolic 79–101
[2022-03-11] MEDS: IPRATROPIUM BROM 0.5 MG/2.5 ML VIAL.NEB (ATROVENT) INH SCH ×4 (03:00→15:45)
[2022-03-11] MEDS: LISINOPRIL 10 MG TABLET (PRINIVIL) GT SCH (09:00)
[2022-03-11] MEDS: FUROSEMIDE 20 MG TABLET GT SCH (09:00)
[2022-03-11] MEDS: CARVEDILOL 3.125 MG TABLET (COREG) GT SCH ×2 (09:00→21:00)
[2022-03-11 10:20] LABS: BASOPHILS # (AUTO) 0.1 K/uL (0.0-0.2); BASOPHILS % (AUTO) 0.3 % (0.0-2.0); EOSINOPHILS # (AUTO) 0.1 K/uL (0.0-0.4); EOSINOPHILS % (AUTO) 0.5 % (0.0-4.0); HEMOGLOBIN 9.8 g/dL (14.0-18.0); LYMPHOCYTES # (AUTO) 1.9 K/uL (1.0-5.5); MEAN CORPUSCULAR HEMOGLOBIN 28 pg (27-31); MEAN CORPUSCULAR HGB CONC 32 % (32-36); MEAN CORPUSCULAR VOLUME 90 fL (79.0-98.0); MONOCYTES # (AUTO) 0.7 K/uL (0.0-1.0); MONOCYTES % (AUTO) 3.2 % (1.7-9.3); NEUTROPHILS # (AUTO) 18.7 K/uL (1.8-7.7); PLATELET COUNT (AUTO) 263 K/uL (130-430); RED BLOOD CELL COUNT(AUTO) 3.45 MIL/uL (4.2-6.2); RED CELL DISTRIBUTION WIDTH 21.9 % (9.0-15.0); WHITE BLOOD COUNT (AUTO) 21.5 K/uL (4.8-10.8)
[2022-03-11] MEDS: ASPIRIN 81 MG TAB.CHEW GT SCH (11:38)
[2022-03-11] MEDS: HEPARIN SODIUM,PORCINE 5,000 UNITS/ML VIAL SUBCUT SCH ×2 (11:40→21:00)
[2022-03-11] MEDS: FAMOTIDINE 20 MG TABLET GT SCH ×2 (11:41→21:00)
[2022-03-11] MEDS: MULTIVITAMINS TAB 1 TABLET GT SCH (11:41)
[2022-03-11] MEDS: GLYCOPYRROLATE 1 MG TABLET GT SCH ×2 (11:41→21:00)
[2022-03-11] MEDS: LACTOBACILLUS RHAMNOSUS GG 1 CAP CAPSULE PO SCH ×2 (11:41→21:00)
[2022-03-11] MEDS: BALSAM PERU/CASTOR OIL 56.7 GM OINT...G. TP SCH ×2 (11:43→21:00)
[2022-03-11] MEDS ORDERED: VANCOMYCIN HCL 1,500 MG in NS 250 ML IV SCH (13:30)
[2022-03-11] MEDS ORDERED: VANCOMYCIN HCL 1,250 MG in NS 250 ML IV SCH (15:00)
[2022-03-12] MEDS: IPRATROPIUM BROM 0.5 MG/2.5 ML VIAL.NEB (ATROVENT) INH SCH ×2 (00:36→00:37)
[2022-03-12] MEDS ORDERED: ALBUMIN HUMAN 25% 100 ML IV SCH (12:00)
== END 2022-03-12 04:19 | DRG 853 ==
LOC: SED 23:25 → SIC 02-27 05:39 → STU 03-01 23:07
PROVIDERS: ADMIT Student in an Organized Health Care Education/Training Program; ATTEND Internal Medicine
PROC: 0HR8XK3 Replacement of Buttock Skin with Nonautologous Tissue Substitute, Full Thickness, External Approach (ICD-10-PCS; 2022-03-06)
PROC: 0JB70ZZ Excision of Back Subcutaneous Tissue and Fascia, Open Approach (ICD-10-PCS; principal; 2022-03-06 14:39)
DX: A41.9 Sepsis, unspecified organism (principal); G93.41 Metabolic encephalopathy; J15.6 Pneumonia due to other Gram-negative bacteria; L89.154 Pressure ulcer of sacral region, stage 4; J96.91 Respiratory failure, unspecified with hypoxia; M72.6 Necrotizing fasciitis; N39.0 Urinary tract infection, site not specified; E87.2 Acidosis; M86.8X8 Other osteomyelitis, other site; Y95 Nosocomial condition; F03.90 Unspecified dementia, unspecified severity, without behavioral disturbance, psychotic disturbance, mood disturbance, and anxiety; I11.0 Hypertensive heart disease with heart failure; E11.69 Type 2 diabetes mellitus with other specified complication; I48.91 Unspecified atrial fibrillation; B96.20 Unspecified Escherichia coli [E. coli] as the cause of diseases classified elsewhere; K21.9 Gastro-esophageal reflux disease without esophagitis; G89.29 Other chronic pain; I50.9 Heart failure, unspecified; Z20.822 Contact with and (suspected) exposure to COVID-19; R13.10 Dysphagia, unspecified; Z74.01 Bed confinement status; Z86.73 Personal history of transient ischemic attack (TIA), and cerebral infarction without residual deficits; Z93.1 Gastrostomy status; Z79.899 Other long term (current) drug therapy; Z79.82 Long term (current) use of aspirin; Z95.0 Presence of cardiac pacemaker
CPT/HCPCS: 36415; 71045; 80048; 80053; 81000; 82962; 83605; 83735; 83880; 84100; 84311; 85007; 85025; 85027; 85610-TC; 85730-TC; 87040; 87070-TC; 87081; 87086; 87186-TC; 88304; 92610-GN; 93005; 94640; 94760; 96361; 96365; 96367; 96375; 99291; A6550; G0378; J0713; J1100; J1644; J1885; J1956; J2185; J2270; J2370; J2405; J2543; J2704; J2765; J3010; J3370; J3480; J3490; J7030; J7050; J7613